=== PATIENT | male | born 1990 | race Caucasian/White ===

== ENCOUNTER 2022-10-17 10:48 | Emergency (ER) | payer BC ==
[~2022-10-17] VITALS: Ht 182.9 cm; Wt 90.7 kg
[2022-10-17 11:03] VITALS: BP_SYST 135; PULSE 61; RESP 18; TEMP 97.3; O2SAT 98
[2022-10-17 12:37] VITALS: BP_SYST 135; PULSE 61; RESP 18; TEMP 97.3; O2SAT 98
== END 2022-10-17 12:37 | disposition home or self-care (01) ==
LOC: SED 10:48
DX: S93.602A Unspecified sprain of left foot, initial encounter (principal); Z79.899 Other long term (current) drug therapy; W18.42XA Slipping, tripping and stumbling without falling due to stepping into hole or opening, initial encounter; Y93.02 Activity, running; Y92.89 Other specified places as the place of occurrence of the external cause; Y99.8 Other external cause status
CPT/HCPCS: 99283